=== PATIENT | male | born 1985 | race Two or more races ===

== ENCOUNTER 2020-04-15 13:10 | Emergency (ER) | payer BC, OTHER ==
[~2020-04-15] VITALS: Ht 167.6 cm; Wt 99.8 kg
[2020-04-15 13:28] VITALS: BP 142/101
== END 2020-04-15 15:51 | disposition home or self-care (01) ==
LOC: ER 13:10
DX: S61.210A Laceration without foreign body of right index finger without damage to nail, initial encounter (principal); S60.021A Contusion of right index finger without damage to nail, initial encounter; W26.8XXA Contact with other sharp object(s), not elsewhere classified, initial encounter; Y93.89 Activity, other specified; Y92.89 Other specified places as the place of occurrence of the external cause; Y99.8 Other external cause status
CPT/HCPCS: 12002; 73130

== ENCOUNTER 2021-10-24 19:10 | Emergency (ER) | payer SELFPAY ==
[~2021-10-24] VITALS: Ht 167.6 cm; Wt 102.1 kg
[2021-10-24 19:10] VITALS: BP 136/94
[2021-10-24] MEDS ORDERED: IBUPROFEN 600 MG TAB PO ONE (23:15)
== END 2021-10-24 23:52 | disposition left against medical advice (07) ==
LOC: ER 19:13
DX: M54.59 Other low back pain (principal); R51.9 Headache, unspecified; Z53.21 Procedure and treatment not carried out due to patient leaving prior to being seen by health care provider; V80.010A Animal-rider injured by fall from or being thrown from horse in noncollision accident, initial encounter; Y93.89 Activity, other specified; Y92.89 Other specified places as the place of occurrence of the external cause; Y99.8 Other external cause status
CPT/HCPCS: 70450; 71101; 72100